=== PATIENT | male | born 1990 | race Hispanic/Latino ===

== ENCOUNTER 2019-03-05 21:31 | Emergency (ER) | payer OTHER ==
[2019-03-05] MEDS ORDERED: KETOROLAC TROMETHAMINE 60 MG/2 ML VIAL ONE (22:16)
[2019-03-06] MEDS ORDERED: IBUPROFEN 100 MG/5 ML SUSP UDCUP ONE (00:14)
== END 2019-03-05 23:55 | disposition home or self-care (01) ==
LOC: EDH 21:31
DX: R07.89 Other chest pain (principal); F41.1 Generalized anxiety disorder
CPT/HCPCS: 71046; 93005; 96372; 99284; J1885

== ENCOUNTER 2022-01-13 17:17 | Emergency (ER) | payer OTHER ==
[~2022-01-13] VITALS: Ht 182.9 cm; Wt 74.8 kg
[2022-01-13 17:22] VITALS: BP 150/85
[2022-01-13] MEDS: 0.9%NACL 1000ML 1,000 ML IV ONE (17:51)
[2022-01-13 18:12] LABS: ALCOHOL, BLOOD < 3 mg/dL (0-10); AMPHET/METH SCREEN,URINE NEGATIVE (NEGATIVE); BARBITURATE SCREEN, URINE NEGATIVE (NEGATIVE); BENZODIAZEPINES SCREEN,URINE NEGATIVE (NEGATIVE); CANNABINOID SCREEN,URINE NEGATIVE (NEGATIVE); COCAINE SCREEN,URINE NEGATIVE (NEGATIVE); CREATINE KINASE, TOTAL 88 U/L (21-232); PHENCYCLIDINE SCREEN,URINE NEGATIVE (NEGATIVE)
== END 2022-01-13 18:34 | disposition home or self-care (01) ==
LOC: EDH 17:17
DX: F41.9 Anxiety disorder, unspecified (principal); E86.0 Dehydration
CPT/HCPCS: 99284; 96360; 82550; 80305; 36415; 93005; J7030